=== PATIENT | female | born 1970 | race African-American/Black ===

== ENCOUNTER 2018-12-03 20:02 | Emergency (ER) | payer OTHER, MEDICARE, MEDICAID ==
[2018-12-03] MEDS ORDERED: OXYCODONE-ACETAMINOPHEN 5-325 MG TABLET PO ONE (20:44)
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
[2018-12-03 21:45] VITALS: BP 122/78
== END 2018-12-03 21:45 | disposition home or self-care (01) ==
LOC: ER 20:02
DX: M54.2 Cervicalgia (principal); V43.62XA Car passenger injured in collision with other type car in traffic accident, initial encounter; F17.200 Nicotine dependence, unspecified, uncomplicated; I50.9 Heart failure, unspecified
CPT/HCPCS: 72125; 99283